=== PATIENT | male | born 1960 | race American Indian/Alaskan Native ===

== ENCOUNTER 2016-07-18 07:25 | Emergency (ER) | payer MEDICAID ==
[2016-07-18 08:28] LABS: Basophils % (Auto) 0.6 % (0.0-1.8); Eosinophils % (Auto) 0.3 % (0.0-4.3); Hematocrit 41.9 % (35.5-45.6); Mean Corpuscular HGB Conc 33 % (32-34); Mean Corpuscular Hemoglobin 30 pg (28-32); Mean Corpuscular Volume 89 fl (84-94); Platelet Count 290 K/mm3 (140-440); Red Blood Count 4.71 M/mm3 (3.65-5.03); Red Cell Distribution Width 15.5 % (13.2-15.2)
[2016-07-18 08:50] LABS: Anion Gap 18 mmol/L; Blood Urea Nitrogen 12 mg/dL (9-20); Calcium 9.1 mg/dL (8.4-10.2); Carbon Dioxide 24 mmol/L (22-30); Chloride 105.5 mmol/L (98-107); Glucose 114 mg/dL (75-100); Potassium 4.7 mmol/L (3.6-5.0); Sodium 143 mmol/L (137-145)
--- NOTE | 2016-07-18 10:55 | XRay Report ---
Chest 2 views: Compared to 08/03/14. History: Shortness of breath. Findings: Normal cardiomediastinal silhouette the trachea is midline. No consolidation, pneumothorax or pleural effusion. Impression: No acute cardiopulmonary findings.
[2016-07-18] MEDS ORDERED: ATROVENT IH ONE (13:23)
[2016-07-18] MEDS ORDERED: PROVENTIL IH ONE (13:23)
[2016-07-18] MEDS ORDERED: TESSALON PERLES PO ONE (13:23)
--- NOTE | 2016-07-18 13:30 | Emergency Department Report ---
HPI - General Chief Complaint: Dyspnea/Respdistress Time Seen by Provider: 07/18/16 13:12 - HPI HPI: Room 4 The patient is a 55-year-old male presenting with a chief complaint of cough. Patient states for the past 3 weeks she has had a cough productive of yellow sputum. Patient states she was diagnosed with community-acquired pneumonia and started on Levaquin 750 mg daily for 5 days. Patient states she completed the course but his symptoms have not improved. The patient states he was scheduled to see his primary physician 2 days ago but was unable to make the appointment. Patient admits to subjective fever as well as a fever measured to 102F. Patient pleasant shortness of breath when he lies down and continued cough. Patient does admit to rhinorrhea. Patient also complains left maxillary sinus pain Location: [see above] Duration: 3 weeks Quality:, Congestion Severity: Moderate Modifying factors: [see above] Context: [see above] Mode of transportation: Unknown ED Past Medical Hx - Past Medical History Previous Medical History?: Yes Hx Asthma: Yes Additional medical history: DDD neck and back - Surgical History Past Surgical History?: No Additional Surgical History: Hernia - Family History Family history: no significant - Social History Smoking Status: Never Smoker Substance Use Type: None - Medications Home Medications: Home Medications Medication Instructions Recorded Confirmed Last Taken Type ALBUTEROL Inhaler [ProAir HFA 2 puff IH QID PRN #1 inhalation 08/03/14 Unknown Rx Inhaler] Azithromycin [Zithromax] 500 mg PO QDAY #3 tablet 08/03/14 Unknown Rx Prednisone [Prednisone 5 mg (6-Day 5 mg PO .TAPER #1 tab.ds.pk 08/03/14 Unknown Rx Pack, 21 Tabs)] HYDROcodone/APAP 10-325 [[place] 1 each PO Q6HR PRN #14 tablet 11/16/15 Unknown Rx 10-325 mg TAB] Azithromycin [Zithromax Z-DALTON] 0 mg PO DAILY #6 tab 07/18/16 Unknown Rx Benzonatate [Tessalon Perles] 100 mg PO Q8HR #30 capsule 07/18/16 Unknown Rx Prednisone [predniSONE 10 mg 10 mg PO .TAPER #1 tab.ds.pk 07/18/16 Unknown Rx (6-Day Pack, 21 Tabs)] traMADol [Ultram] 50 mg PO Q6HR PRN #14 tablet 07/18/16 Unknown Rx ED Review of Systems ROS: Stated complaint: SOB Other details as noted in HPI Comment: All other systems reviewed and negative Constitutional: fever Eyes: denies: eye pain, eye discharge, vision change ENT: congestion Respiratory: cough Cardiovascular: denies: chest pain, palpitations Endocrine: no symptoms reported Gastrointestinal: denies: abdominal pain, nausea, diarrhea Genitourinary: denies: urgency, dysuria Musculoskeletal: denies: back pain, joint swelling, arthralgia Skin: denies: rash, lesions Neurological: denies: headache, weakness, paresthesias Psychiatric: denies: anxiety, depression Hematological/Lymphatic: denies: easy bleeding, easy bruising Physical Exam - Physical Exam Vital Signs: Vital Signs 07/18/16 07:50 Temperature 98.3 F Pulse Rate 60 Respiratory 20 Rate Blood Pressure 136/87 O2 Sat by Pulse 100 Oximetry Physical Exam: GENERAL: The patient is well-developed well-nourished male standing in room not appearing to be in acute distress. [] HEENT: Normocephalic. Atraumatic. Extraocular motions are intact. Patient has moist mucous membranes. Tenderness to percussion of the left frontal and maxillary sinus NECK: Supple. No meningitic signs are noted. Trachea midline CHEST/LUNGS: Occasional rhonchi and occasional cough. There is no respiratory distress noted. HEART/CARDIOVASCULAR: Regular. There is no tachycardia. There is no gallop rub or murmur. ABDOMEN: Abdomen is soft, nontender. Patient has normal bowel sounds. There is no abdominal distention. SKIN: There is no rash. There is no diaphoresis. NEURO: The patient is awake, alert, and oriented. The patient is cooperative. The patient has normal speech and gait MUSCULOSKELETAL:There is no evidence of acute injury. ED Course Vital Signs 07/18/16 07:50 Temperature 98.3 F Pulse Rate 60 Respiratory 20 Rate Blood Pressure 136/87 O2 Sat by Pulse 100 Oximetry ED Medical Decision Making - Lab Data Result diagrams: 07/18/16 08:03 07/18/16 08:03 Laboratory Tests 07/18/16 07/18/16 08:03 08:03 WBC 10.0 RBC 4.71 Hgb 14.0 Hct 41.9 MCV 89 MCH 30 MCHC 33 RDW 15.5 H Plt Count 290 Lymph % (Auto) 12.5 L [place]oup % (Auto) 6.1 Eos % (Auto) 0.3 Baso % (Auto) 0.6 Lymph # 1.2 Loup # 0.6 Eos # 0.0 Baso # 0.1 Seg Neutrophils % 80.5 H Seg Neutrophils # 8.1 H Sodium 143 Potassium 4.7 Chloride 105.5 Carbon Dioxide 24 Anion Gap 18 BUN 12 Creatinine 1.0 Estimated GFR > 60 BUN/Creatinine Ratio 12.00 Glucose 114 H Calcium 9.1 Laboratory Tests 07/18/16 07/18/16 07/18/16 08:03 08:03 08:03 WBC 10.0 RBC 4.71 Hgb 14.0 Hct 41.9 MCV 89 MCH 30 MCHC 33 RDW 15.5 H Plt Count 290 Lymph % (Auto) 12.5 L [place]oup % (Auto) 6.1 Eos % (Auto) 0.3 Baso % (Auto) 0.6 Lymph # 1.2 Loup # 0.6 Eos # 0.0 Baso # 0.1 Seg Neutrophils % 80.5 H Seg Neutrophils # 8.1 H Sodium 143 Potassium 4.7 Chloride 105.5 Carbon Dioxide 24 Anion Gap 18 BUN 12 Creatinine 1.0 Estimated GFR > 60 BUN/Creatinine Ratio 12.00 Glucose 114 H Calcium 9.1 NT-Pro-B Natriuret Pep 18.76 - EKG Data -: EKG Interpreted by Me EKG shows normal: sinus rhythm Rate: normal - EKG Data When compared to previous EKG there are: no significant change Interpretation: unchanged when compared t (08/03/2014), other (no ischemic changes seen) - Radiology Data Radiology results: image reviewed (chest x-ray) interpreted by me: Chest x-ray-No focal infiltrates, no pneumothorax - Differential Diagnosis sinusitis, bronchitis, CHF Critical care attestation.: If time is entered above; I have spent that time in minutes in the direct care of this critically ill patient, excluding procedure time. ED Disposition Clinical Impression: Acute sinusitis, Bronchitis Disposition: DISCHARGED TO HOME OR SELFCARE Is pt being admited?: No Does the pt Need Aspirin: No Condition: Stable Instructions: Sinusitis (ED), Chronic Bronchitis (ED) Additional Instructions: Return to the emergency department immediately should you develop worsening symptoms, fever, inability to tolerate food or liquid or any other concerns. Prescriptions: Azithromycin [Zithromax Z-DALTON] 0 mg PO DAILY #6 tab Benzonatate [Tessalon Perles] 100 mg PO Q8HR #30 capsule Prednisone [predniSONE 10 mg (6-Day Pack, 21 Tabs)] 10 mg PO .TAPER #1 tab.ds.pk traMADol [Ultram] 50 mg PO Q6HR PRN #14 tablet PRN Reason: Pain Referrals: PRIMARY CARE, [Primary Care Provider] - 3-5 Days MEJIA MOLINA MD [Staff Physician] - 3-5 Days (Dr. Molina is a hydration plant operator. Please follow up with him for further evaluation) Time of Disposition: 13:57
[2016-07-18 14:10] VITALS: BP 148/72
== END 2016-07-18 14:10 | disposition home or self-care (01) ==
LOC: ED 07:25
DX: J01.90 Acute sinusitis, unspecified (principal); J40 Bronchitis, not specified as acute or chronic; J45.909 Unspecified asthma, uncomplicated
CPT/HCPCS: 36415; 71020; 80048; 83880; 85025; 87040; 93005; 93010; 94640

== ENCOUNTER 2016-09-27 06:07 | Emergency (ER) | payer MEDICAID ==
[2016-09-27 06:28] VITALS: BP 131/70
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
[2016-09-27] MEDS ORDERED: TYLENOL PO ONE (07:14)
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
== END 2016-09-27 08:17 | disposition home or self-care (01) ==
LOC: ED 06:07
DX: M54.2 Cervicalgia (principal); J40 Bronchitis, not specified as acute or chronic; Z88.6 Allergy status to analgesic agent; V49.49XA Driver injured in collision with other motor vehicles in traffic accident, initial encounter; Y93.89 Activity, other specified; Y99.9 Unspecified external cause status; Y92.410 Unspecified street and highway as the place of occurrence of the external cause

== ENCOUNTER 2017-01-22 20:17 | Emergency (ER) | payer MEDICAID | END 2017-01-23 01:30 | disposition left against medical advice (07) | LOC: ED 20:17 | DX: H92.03 Otalgia, bilateral (principal); J02.9 Acute pharyngitis, unspecified; Z53.21 Procedure and treatment not carried out due to patient leaving prior to being seen by health care provider ==

== ENCOUNTER 2019-11-05 04:35 | Emergency (ER) | payer MEDICAID ==
[2019-11-05 05:37] LABS: Bilirubin,Urine NEG (Negative); Blood,Urine NEG (Negative); Color,Urine Yellow (Yellow); Mucus,Urine FEW /HPF; Protein,Urine <15 mg/dL mg/dL (Negative)
--- NOTE | 2019-11-05 08:33 | Emergency Department Report ---
ED General Adult HPI - General Chief complaint: Back Pain/Injury Stated complaint: RT SIDE FLANK PAIN Time Seen by Provider: 11/05/19 07:24 Source: patient Mode of arrival: Ambulatory Limitations: No Limitations - History of Present Illness Initial comments: 59-year-old -[place] male patient with history of asthma presents with complaints of right flank pain x 6 days and intermittent cough for the past 6 weeks. He reports history of pyelonephritis 3 years ago and states his symptoms feel similar to that. Patient states he has been having urinary frequency and dysuria, however denies any hematuria, penile discharge, fever, nausea/vomiting, or history of kidney stones. Patient states that he began taking his brothers Augmentin on Tuesday and has taken 4 doses. Patient states since starting the Augmentin his symptoms have improved. Patient denies any current shortness of breath, productive cough, chest pain, or known sick contacts. He is requesting cough medication and states this seems like it is his asthma. - Related Data Previous Rx's Medication Instructions Recorded Last Taken Type Albuterol Mdi (or & Nicu Only) 2 puff IH QID PRN #1 inhalation 08/03/14 Unknown Rx [ProAir HFA Inhaler] Azithromycin [Zithromax] 500 mg PO QDAY #3 tablet 08/03/14 Unknown Rx Prednisone [Prednisone 5 mg (6-Day 5 mg PO .TAPER #1 tab.ds.pk 08/03/14 Unknown Rx Pack, 21 Tabs)] HYDROcodone/APAP 10-325 [Robson 1 each PO Q6HR PRN #14 tablet 11/16/15 Unknown Rx 10-325 mg TAB] Azithromycin [Zithromax Z-DALTON] 0 mg PO DAILY #6 tab 07/18/16 Unknown Rx Benzonatate [Tessalon Perles] 100 mg PO Q8HR #30 capsule 07/18/16 Unknown Rx Prednisone [predniSONE 10 mg 10 mg PO .TAPER #1 tab.ds.pk 07/18/16 Unknown Rx (6-Day Pack, 21 Tabs)] traMADoL [Ultram] 50 mg PO Q6HR PRN #14 tablet 07/18/16 Unknown Rx Acetaminophen [Acetaminophen 8 650 mg PO Q8H #15 tablet.er 09/27/16 Unknown Rx Hour] Cyclobenzaprine [Flexeril] 10 mg PO TID PRN #15 tablet 09/27/16 Unknown Rx Benzonatate 200 mg PO TID PRN #30 capsule 11/05/19 Unknown Rx Ciprofloxacin HCl [Ciprofloxacin 500 mg PO Q12HR 7 Days #14 tab 11/05/19 Unknown Rx TAB] Allergies Allergy/AdvReac Type Severity Reaction Status Date / Time ibuprofen [From Motrin] Allergy Rash Verified 01/22/17 20:27 ED Review of Systems ROS: Stated complaint: RT SIDE FLANK PAIN Other details as noted in HPI Constitutional: denies: chills, diaphoresis, fever, malaise, weakness ENT: denies: throat pain Respiratory: cough. denies: shortness of breath Cardiovascular: denies: chest pain, palpitations, edema, syncope Gastrointestinal: denies: abdominal pain, nausea, vomiting Genitourinary: dysuria, frequency. denies: hematuria, discharge Skin: denies: rash, lesions Neurological: denies: headache, weakness Hematological/Lymphatic: denies: swollen glands ED Past Medical Hx - Past Medical History Previous Medical History?: Yes Hx Asthma: Yes (Bronchitis) Additional medical history: DDD neck and back - Surgical History Past Surgical History?: Yes Additional Surgical History: Hernia. left shoulder - Social History Smoking Status: Never Smoker Substance Use Type: None - Medications Home Medications: Home Medications Medication Instructions Recorded Confirmed Last Taken Type Albuterol Mdi (or & Nicu Only) 2 puff IH QID PRN #1 inhalation 08/03/14 Unknown Rx [ProAir HFA Inhaler] Azithromycin [Zithromax] 500 mg PO QDAY #3 tablet 08/03/14 Unknown Rx Prednisone [Prednisone 5 mg (6-Day 5 mg PO .TAPER #1 tab.ds.pk 08/03/14 Unknown Rx Pack, 21 Tabs)] HYDROcodone/APAP 10-325 [Robson 1 each PO Q6HR PRN #14 tablet 11/16/15 Unknown Rx 10-325 mg TAB] Azithromycin [Zithromax Z-DALTON] 0 mg PO DAILY #6 tab 07/18/16 Unknown Rx Benzonatate [Tessalon Perles] 100 mg PO Q8HR #30 capsule 07/18/16 Unknown Rx Prednisone [predniSONE 10 mg 10 mg PO .TAPER #1 tab.ds.pk 07/18/16 Unknown Rx (6-Day Pack, 21 Tabs)] traMADoL [Ultram] 50 mg PO Q6HR PRN #14 tablet 07/18/16 Unknown Rx Acetaminophen [Acetaminophen 8 650 mg PO Q8H #15 tablet.er 09/27/16 Unknown Rx Hour] Cyclobenzaprine [Flexeril] 10 mg PO TID PRN #15 tablet 09/27/16 Unknown Rx Benzonatate 200 mg PO TID PRN #30 capsule 11/05/19 Unknown Rx Ciprofloxacin HCl [Ciprofloxacin 500 mg PO Q12HR 7 Days #14 tab 11/05/19 Un known Rx TAB] ED Physical Exam - General Limitations: No Limitations General appearance: alert, in no apparent distress - Head Head exam: Present: atraumatic, normocephalic - Eye Eye exam: Present: normal appearance. Absent: scleral icterus - ENT ENT exam: Present: normal orophraynx, mucous membranes moist - Neck Neck exam: Present: normal inspection - Respiratory Respiratory exam: Present: normal lung sounds bilaterally. Absent: respiratory distress, wheezes, rales, rhonchi, chest wall tenderness, accessory muscle use - Cardiovascular Cardiovascular Exam: Present: regular rate, normal rhythm. Absent: systolic murmur, diastolic murmur, rubs, gallop - GI/Abdominal GI/Abdominal exam: Present: soft. Absent: distended, tenderness, guarding, rebound, rigid - Extremities Exam Extremities exam: Present: normal inspection, full ROM. Absent: calf tenderness - Back Exam Back exam: Present: normal inspection. Absent: CVA tenderness (R), CVA tenderness (L) - Neurological Exam Neurological exam: Present: alert, oriented X3, normal gait - Psychiatric Psychiatric exam: Present: normal affect, normal mood - Skin Skin exam: Present: warm, dry, intact, normal color. Absent: rash, cyanosis, diaphoretic, petechiae ED Course Vital Signs 11/05/19 11/05/19 04:41 08:41 Temperature 98.3 F 98.3 F Pulse Rate 47 L 47 L Respiratory 18 18 Rate Blood Pressure 146/67 143/71 O2 Sat by Pulse 99 100 Oximetry ED Medical Decision Making - Lab Data Result diagrams: 11/05/19 08:43 11/05/19 08:43 Lab Results 11/05/19 11/05/19 11/05/19 Range/Units 04:44 08:43 08:43 WBC 6.1 (4.5-11.0) K/mm3 RBC 4.62 (3.65-5.03) M/mm3 Hgb 14.0 (11.8-15.2) gm/dl Hct 42.6 (35.5-45.6) % MCV 92 (84-94) fl MCH 30 (28-32) pg MCHC 33 (32-34) % RDW 15.4 H (13.2-15.2) % Plt Count 316 (140-440) K/mm3 Lymph % (Auto) 35.2 H (13.4-35.0) % [place] % (Auto) 7.9 H (0.0-7.3) % Eos % (Auto) 4.6 H (0.0-4.3) % Baso % (Auto) 1.1 (0.0-1.8) % Lymph # 2.2 (1.2-5.4) K/mm3 [place] # 0.5 (0.0-0.8) K/mm3 Eos # 0.3 (0.0-0.4) K/mm3 Baso # 0.1 (0.0-0.1) K/mm3 Seg Neutrophils % 51.2 (40.0-70.0) % Seg Neutrophils # 3.1 (1.8-7.7) K/mm3 Sodium 141 (137-145) mmol/L Potassium 5.0 (3.6-5.0) mmol/L Chloride 105.2 (98-107) mmol/L Carbon Dioxide 23 (22-30) mmol/L Anion Gap 18 mmol/L BUN 7 L (9-20) mg/dL Creatinine 0.9 (0.8-1.5) mg/dL Estimated GFR > 60 ml/min BUN/Creatinine Ratio 8 % Glucose 101 H (75-100) mg/dL Calcium 9.6 (8.4-10.2) mg/dL Total Bilirubin 0.30 (0.1-1.2) mg/dL Direct Bilirubin < 0.2 (0-0.2) mg/dL AST 18 (5-40) units/L ALT 14 (7-56) units/L Alkaline Phosphatase 74 (35-129) units/L Total Protein 7.3 (6.3-8.2) g/dL Albumin 4.4 (3.9-5) g/dL Albumin/Globulin Ratio 1.5 % Urine Color Yellow (Yellow) Urine Turbidity Clear (Clear) Urine pH 5.0 (5.0-7.0) Ur Specific [place] 1.024 (1.003-1.030) Urine Protein <15 mg/dl (Negative) mg/dL Urine Glucose (UA) Neg (Negative) mg/dL Urine Ketones Neg (Negative) mg/dL Urine Blood Neg (Negative) Urine Nitrite Neg (Negative) Urine Bilirubin Neg (Negative) Urine Urobilinogen 2.0 (<2.0) mg/dL Ur Leukocyte Esterase Neg (Negative) Urine WBC (Auto) 1.0 (0.0-6.0) /HPF Urine RBC (Auto) 3.0 (0.0-6.0) /HPF U Epithel Cells (Auto) < 1.0 (0-13.0) /HPF Urine Mucus Few /HPF - Radiology Data Radiology results: report reviewed CHEST 2 VIEWS INDICATION: cough. COMPARISON: 07/18/2016 FINDINGS: Support devices: None. Heart: Within normal limits. Lungs/pleura: No acute air space or interstitial disease. No pneumothorax. Additional findings: Mild scoliosis IMPRESSION: No acute findings. - Medical Decision Making Patient here with dysuria, urinary frequency, and right flank pain after taking his brothers Augmentin, however they have not fully resolved. UA shows 1 WBC, however I believe this is due to patient taking the Augmentin and altering the results. Urine culture sent. Prescription for Cipro given. Patient also complained of intermittent cough for weeks. Lung exam is normal. Chest x-ray is negative and his vitals are normal. Patient is stable for discharge home and follow-up with his primary care provider. Strict return precautions were discussed in great detail with patient who verbalizes understanding peer Critical care attestation.: If time is entered above; I have spent that time in minutes in the direct care of this critically ill patient, excluding procedure time. ED Disposition Clinical Impression: Pyelonephritis, Cough Disposition: DC-01 TO HOME OR SELFCARE Is pt being admited?: No Condition: Stable Instructions: Acute Pyelonephritis (ED), Asthma (ED) Prescriptions: Benzonatate 200 mg PO TID PRN #30 capsule PRN Reason: Cough Ciprofloxacin HCl [Ciprofloxacin TAB] 500 mg PO Q12HR 7 Days #14 tab Referrals: VINCENZO WOLF MD [Primary Care Provider] - 3-5 Days
--- NOTE | 2019-11-05 08:42 | XRay Report ---
CHEST 2 VIEWS INDICATION: cough. COMPARISON: 07/18/2016 FINDINGS: Support devices: None. Heart: Within normal limits. Lungs/pleura: No acute air space or interstitial disease. No pneumothorax. Additional findings: Mild scoliosis IMPRESSION: No acute findings. Signer Name: Chilo Montes Jr, MD Signed: 11/05/2019 8:38 AM Workstation Name: [id number]
[2019-11-05 10:08] LABS: Basophils # (Auto) 0.1 K/mm3 (0.0-0.1); Basophils % (Auto) 1.1 % (0.0-1.8); Eosinophils # (Auto) 0.3 K/mm3 (0.0-0.4); Eosinophils % (Auto) 4.6 % (0.0-4.3); Hematocrit 42.6 % (35.5-45.6); Lymphocytes # (Auto) 2.2 K/mm3 (1.2-5.4); Lymphocytes % (Auto) 35.2 % (13.4-35.0); Mean Corpuscular HGB Conc 33 % (32-34); Mean Corpuscular Volume 92 fl (84-94); Monocytes # (Auto) 0.5 K/mm3 (0.0-0.8); Monocytes % (Auto) 7.9 % (0.0-7.3); Platelet Count 316 K/mm3 (140-440); Red Blood Count 4.62 M/mm3 (3.65-5.03); Red Cell Distribution Width 15.4 % (13.2-15.2)
[2019-11-05 10:25] LABS: Alanine Aminotransferase 14 units/L (7-56); Albumin 4.4 g/dL (3.9-5); BUN/Creatinine Ratio 8; Blood Urea Nitrogen 7 mg/dL (9-20); Calcium 9.6 mg/dL (8.4-10.2); Hemolysis Index 15
[2019-11-05 10:28] LABS: Bilirubin,Direct < 0.2 mg/dL (0-0.2)
[2019-11-05 10:47] VITALS: BP 141/70
== END 2019-11-05 10:45 | disposition home or self-care (01) ==
LOC: ED 04:35
DX: N12 Tubulo-interstitial nephritis, not specified as acute or chronic (principal); R05 Cough; J45.909 Unspecified asthma, uncomplicated; Z98.890 Other specified postprocedural states; Z79.899 Other long term (current) drug therapy; Z88.8 Allergy status to other drugs, medicaments and biological substances
CPT/HCPCS: 36415; 71046; 80048; 80076; 81001; 85025; 87086